=== PATIENT | female | born 1990 | race Caucasian/White ===

== ENCOUNTER 2016-07-22 23:18 | Emergency (ER) | payer BC ==
[~2016-07-22] VITALS: Ht 170.2 cm; Wt 61.2 kg
[~2016-07-22 23:18] MED LIST: AMOXICILLIN500 MG ORAL; AUGMENTIN 875-1 EAC1 ORAL; BENTYL10 MG ORAL; IBUPROFEN600 MG ORAL; MYLANTA30 M1 ORAL; NKM; VICODIN 5-5001 EACH PO
[2016-07-23] MEDS ORDERED: Ketorolac 30mg Inj IV ONE (00:15)
[2016-07-23 00:28] LABS: APPEARANCE,URINE CLEAR; KETONES,URINE NEGATIVE (NEGATIVE); LEUKOCYTE ESTERASE ,URINE NEGATIVE (NEGATIVE); NITRITE,URINE NEGATIVE (NEGATIVE); PH,URINE 6 (4.5-8.0); PROTEIN,URINE NEGATIVE (NEGATIVE); UROBILINOGEN,URINE NORMAL MG/DL (0.0-1.0)
--- NOTE | 2016-07-23 00:45 | Emergency Room Report ---
History of Present Illness General Chief Complaint: Abdominal Pain Source: Patient Present Illness HPI This is a 26-year-old female with a history of ovarian cyst. She presents with chief of left lower quadrant pain for the last couple days. Unable to sleep because of the pain. Denies any fever chills denies any nausea vomiting. Nothing made it better. Nothing made it worse. No urinary complaint. No discharge. Similar to previous pain but worse. Allergies: Coded Allergies: No Known Allergies (Unverified , 01/08/13) Patient History Past Medical History: see triage record, old chart reviewed Past Surgical History: none Pertinent Family History: none Social History: Denies: smoking Last Menstrual Period: Jul Now: No Immunizations: other Reviewed Nursing Documentation: PMH: Agreed, PSxH: Agreed Review of Systems Eye: Denies: blurred vision, eye pain ENT: Denies: ear pain, nose congestion, throat swelling Respiratory: Denies: cough, shortness of breath Cardiovascular: Denies: chest pain, palpitations Gastrointestinal: Denies: abdominal pain, diarrhea, nausea, vomiting Musculoskeletal: Denies: back pain, joint pain Skin: Denies: rash Neurological: Denies: headache, numbness Endocrine: Denies: increased thirst, increased urine Hematologic/Lymphatic: Denies: easy bruising All Other Systems: negative except mentioned in HPI Physical Exam Vital Signs Date Time Temp Pulse Resp B/P Pulse Ox O2 Delivery O2 Flow Rate FiO2 07/22/16 23:42 97.9 59 16 110/65 100 Room Air vital is normal Sp02 EP Interpretation: reviewed, normal General Appearance: well appearing, no apparent distress, alert Head: normocephalic, atraumatic Eyes: bilateral eye EOMI, bilateral eye PERRL ENT: hearing grossly normal, normal pharynx Neck: full range of motion, supple, no meningismus Respiratory: chest non-tender, lungs clear, normal breath sounds Cardiovascular #1: regular rate, rhythm, no murmur Gastrointestinal: normal bowel sounds, no mass, no organomegaly, no bruit, non- distended, tenderness - Left lower quadrant Musculoskeletal: back normal, gait/station normal, normal range of motion Neurologic: alert, oriented x3 Psychiatric: mood/affect normal Skin: warm/dry Medical Decision Making Diagnostic Impression: Primary Impression: Abdominal pain Qualified Codes: R10.32 - Left lower quadrant pain ER Course Patient present with abdominal pain to the left lower quadrant. She has a history of ovarian cyst on the left. Does appear to be a complex cyst. CAT scan negative for any bleeding. She looks comfortable. No evidence of torsion. No ectopic. No infection. We'll discharge home. She may need surgical evaluation, her setter off. CT/MRI/US Diagnostic Results CT/MRI/US Diagnostic Results : Imaging Test Ordered: CT abdomend pelvis Impression negative per radiologist Last Vital Signs Date Time Temp Pulse Resp B/P Pulse Ox O2 Delivery O2 Flow Rate FiO2 07/22/16 23:42 97.9 59 16 110/65 100 Room Air Status: improved Disposition: HOME, SELF-CARE Condition: Stable Additional Instructions: Followup with your setter off as scheduled. You may need definitive treatment for your ovarian cyst. Return if symptom worsen. KEILY RYAN M.D. Jul 23, 2016 00:45
[2016-07-23 00:51] LABS: BASOPHILS % (AUTO) 0.9 % (0.0-2.0); EOSINOPHILS % (AUTO) 0.7 % (0.0-3.0); LYMPHOCYTES % (AUTO) 36.6 % (20.0-45.0); MEAN CORPUSCULAR VOLUME 88 FL (80-99); MEAN PLATELET VOLUME 8.9 FL (6.5-10.1); MONOCYTES % (AUTO) 7.3 % (1.0-10.0); NEUTROPHILS % (AUTO) 54.6 % (45.0-75.0); PLATELET COUNT 200 K/UL (150-450); RED BLOOD COUNT 4.47 M/UL (4.20-5.40); RED CELL DISTRIBUTION WIDTH 11.3 % (11.6-14.8)
[2016-07-23 01:13] LABS: ANION GAP 13 (5-15); CALCIUM 9.6 mg/dL (8.6-10.2); CARBON DIOXIDE 28 mEQ/L (20-30); CHLORIDE 100 mEQ/L (98-107); CREATININE 0.9 mg/dL (0.5-0.9); GLOMERULAR FILTRATION RATE > 60 mL/min (>60); HEMOLYSIS 6; POTASSIUM 3.7 mEQ/L (3.4-4.9); SODIUM 141 mEQ/L (135-145)
[2016-07-23 01:58] VITALS: BP 108/67
--- NOTE | 2016-07-23 10:46 | Diagnostic Imaging Report ---
Indications: Abdominal pain Technique: Continuous helical CT imaging of the abdomen and pelvis was performed with automatic exposure control on a Siemens sensation [address] scanner. Axial, coronal, and sagittal images were reconstructed at 3 mm slice thickness. No oral or IV contrast was administered per requesting physician's order, despite no contraindications listed in either submitted clinical data or tech note.. CTDI volume(s): 13 mGy Total DLP: 742 mGy-cm Findings: Comparison: None. Lack of IV and oral contrast limits evaluation. Paucity of body fat decreases inherent soft tissue contrast, further limiting evaluation. Kidneys, ureters, urinary bladder demonstrate no intraparenchymal or intraluminal stones, collecting system or ureteral dilation, perinephric or periureteral stranding. The appendix is obviously enlarged/ inflamed. The gastrointestinal tract is nondilated, aside from. Diffusely increased colonic fecal content. No extraluminal gas or fluid collections are demonstrated. Gallbladder contracted, limiting evaluation. 2 cm circumscribed low-attenuation focus left adnexal region is not further characterizable. Remainder of visualized abdominopelvic anatomy demonstrates no other obvious abnormality, though lack of oral and IV contrast limits evaluation. Small irregular pleural-based linear densities and dependent portions of both lung bases.. No focal skeletal abnormalities demonstrated. IMPRESSION: No evidence of acute abdominopelvic disease. Lack of oral and IV contrast limits evaluation, however, and significant abnormalities may be missed. Repeat CT scan with full oral and IV contrast preparation recommended for more complete evaluation, as clinically indicated. Suggestion of constipation Nonspecific 2 cm low-attenuation lesion in left adnexal region, most likely physiologic ovarian cyst. Ultrasound correlation suggested. This correlates with [facility] preliminary report. The CT scanner at [facility] is accredited by the [employer] and the scans are performed using protocols designed to limit radiation exposure to as low as reasonably achievable to attain images of sufficient resolution adequate for diagnostic evaluation.
== END 2016-07-23 01:59 | disposition home or self-care (01) ==
LOC: EMR 23:58
DX: R10.32 Left lower quadrant pain (principal); Z87.42 Personal history of other diseases of the female genital tract; R93.8 Abnormal findings on diagnostic imaging of other specified body structures
CPT/HCPCS: 36415; 74176; 80048; 81003; 81025; 85025; 96374; 99284; J1885